=== PATIENT | female | born 1985 | race Two or more races ===

== ENCOUNTER → 2020-12-16 | Outpatient (CLI) | payer OTHER | END | disposition home or self-care (01) | LOC: LAB 17:00 | PROVIDERS: ATTEND Specialist | DX: Z30.432 Encounter for removal of intrauterine contraceptive device (principal) ==

== ENCOUNTER 2021-02-21 15:38 | Emergency (ER) | payer OTHER ==
[~2021-02-21] VITALS: Ht 167.6 cm; Wt 72.6 kg
[2021-02-21 15:40] VITALS: BP 134/86
[2021-02-21] MEDS ORDERED: LIDOCAINE 1% HCL (LOCAL ANESTH.) INJ 20ML MDV IJ ONE (16:15)
[2021-02-21] MEDS ORDERED: TETANUS-DIPTH-ACEL PERTUSSIS 0.5ML SYR Tdap IM ONE (17:00)
[2021-02-21] MEDS ORDERED: IBUPROFEN 600 MG TAB PO ONE (18:15)
[2021-02-21] MEDS ORDERED: cefTRIAXone SOD 1,000 MG VL IM ONE (18:15)
== END 2021-02-21 18:30 | disposition home or self-care (01) ==
LOC: ER 15:38
DX: S62.521A Displaced fracture of distal phalanx of right thumb, initial encounter for closed fracture (principal); S61.011A Laceration without foreign body of right thumb without damage to nail, initial encounter; S61.432A Puncture wound without foreign body of left hand, initial encounter; W54.0XXA Bitten by dog, initial encounter; Y93.89 Activity, other specified; Y92.89 Other specified places as the place of occurrence of the external cause; Y99.8 Other external cause status
CPT/HCPCS: 12002; 73130; 73140; 90471; 90715; 96372; 99284; J0696; J2001